=== PATIENT | male | born 2000 | race Caucasian/White ===

== ENCOUNTER 2022-09-08 09:50 | Emergency (ER) | payer SELFPAY ==
[2022-09-08 11:16] LABS: POTASSIUM,K 4.5 mmol/L (3.5-5.1)
== END 2022-09-08 11:43 | disposition home or self-care (01) ==
LOC: MW.ED 09:50
DX: K62.89 Other specified diseases of anus and rectum (principal); Z72.0 Tobacco use
CPT/HCPCS: 36415; 80053; 85025; 99283